=== PATIENT | female | born 1945 | race Caucasian/White ===

== ENCOUNTER → 2017-10-10 | Outpatient (CLI) | payer MEDICARE, OTHER ==
[~2017-10-10] VITALS: Ht 157.5 cm; Wt 54.0 kg
[~2017-10-10] MED LIST: ACYCLOVIR 400400 MG PO; ASPIRIN81 M2 PO; ATORVASTATIN CA40 MG PO; B12INJ IM; CELEXA20 MG PO; COZAAR 25 MG TA25 M2 PO; FOSAMAX 70 MG T70 MG PO; IMDUR 30 MG TAB30 M1; KLOR-CON 1010 MEQ PO; LASIX 20 MG TAB20 MG PO; NITROGLYCERIN0.4 MG SUBLING; PRILOSEC 20 MG20 MG PO; PULMICORT FLE180 MCG INH; PULMICORT0.25 MG/3 INH; UNICOMPLEX M TA1 TA1 PO; VENTOLIN HFA 1818 GM; VITAMIN D350000 UNIT PO
[2017-10-10 08:10] LABS: HEMATOCRIT 43.6 % (37.0-47.0); HEMOGLOBIN 14.8 gm/dL (12.0-15.0); MCH 30.4 pg (26.0-34.0); MCHC 33.9 g/dL (28.0-37.0); MCV 89.8 fL (80.0-100.0); MPV 9.1 fl. (7.2-11.1); RBC 4.86 mil/uL (4.20-5.00); WBC 3.7 thou/uL (4.0-11.0)
[2017-10-10 08:20] LABS: ANION GAP 6 mmol/L (7-16); BUN 15 mg/dL (7-18); CHLORIDE 107 mmol/L (98-107); CO2 28 mmol/L (21-32); CREATININE 0.8 mg/dL (0.6-1.3); GLUCOSE 113 mg/dL (70-99); POTASSIUM 3.6 mmol/L (3.5-5.1); SODIUM 141 mmol/L (136-145)
[2017-10-10 08:21] LABS: APTT 25.7 Seconds (25.0-31.3)
[2017-10-10 08:24] LABS: ALBUMIN 4.2 g/dL (3.4-5.0); ALKALINE PHOSPHATASE 79 U/L (46-116); CHOLESTEROL 160 mg/dL (<200); HDL CHOLESTEROL 70 mg/dL (>40); LDL CHOLESTEROL 79 mg/dL (<100); SGOT 17 U/L (15-37); SGPT 21 U/L (30-65); TC:HDL 2.3 Ratio (Not establshd); TOTAL BILIRUBIN 0.6 mg/dL (<0.1-1.0); TRIGLYCERIDE 58 mg/dL (<150); VLDL 12 mg/dL (<40)
[2017-10-10 08:25] LABS: SERUM ASSESSMENT Clear
[2017-10-10 08:38] VITALS: BP 161/66
[2017-10-10 10:38] VITALS: BP 118/49
--- NOTE | 2017-10-10 11:29 | EKG ---
[place] [address] ELECTROCARDIOGRAM REPORT Name: NIDIA VALLADARES Room: [facility]#: [id number] Admission: 10/10/17 Attend Phys: Daquan Bosch MD Discharge: Date of : 41 Report #: [id number] THIS REPORT FOR: //name// [facility] Test Date: 2017-10-10 Test Time: 08:45:34 Pat Name: NIDIA VALLADARES Department: Room: Gender: F Health Screener: 25 : 1945 Requested By: Daquan Bosch Order Number: [id number] Reading MD: Daquan Bosch Measurements Intervals Tolar Rate: 65 P: 67 MD: 181 QRS: 46 QRSD: 85 T: 57 QT: 398 QTc: 414 Interpretive Statements Sinus rhythm No previous ECG available for comparison Electronically Signed On 10-10-2017 11:29:33 BUSINESS SERVICES ASSOCIATE by Daquan Bosch [email or web address] <ELECTRONICALLY SIGNED> By: Daquan Bosch MD, [facility] 10/10/17 1129 0845 0845 Daquan Bosch MD, FACC /EPI
[2017-10-10 11:34] VITALS: BP 136/54
[2017-10-10 12:57] VITALS: BP 131/66
--- NOTE | 2017-10-10 16:40 | CARD ---
[address] [address] CARDIAC CATH REPORT Name: NIDIA VALLADARES Room: [facility]#: [id number] Admission: 10/10/17 Attend Phys: Daquan Bosch MD Discharge: Date of : 41 Report #: [id number] THIS REPORT FOR: //name// APPROVED REPORT Patient Details Patient Status: Out-Patient Room #: The patient is a 72 year-old female Event Personnel Daquan Bosch Catering Convention Services Manager, Haritha Goodman, Brisa Saba RTR Scrub, Ida Begum RN Policy Issue Clerk Procedures Performed Art Access - R radial artery , Selective Right and Left Coronary Angiography, Left Heart Catheterization Procedure Narrative The patient was brought electively to the Cardiac Catheterization Laboratory and was prepped and draped in a sterile manner. The right wrist was infiltrated with 1% Lidocaine subcutaneous anesthesia. A Slender Glidesheath sheath was inserted into the right radial artery. Coronary angiography was performed using coronary diagnostic catheters. The right coronary system was accessed and visualized with a DCR: [place] 4.0 5fr catheter. The left coronary system was accessed and visualized with a DCR: [place] 4.0 5fr catheter. The left ventricle was accessed and visualized with a PC: Angled Pig 5fr catheter. Left ventricular/Aortic Valve gradient assessed via catheter pullback. Left ventriculogram was performed in BECKWITH projection. The patient tolerated the procedure well and there were no complications associated with the procedure. Intraoperative Conscious Sedation Sedation start time: 09:45 Case end Time: 09:57 Fentanyl 25 mcg Versed 2 mg Fluoro Time: 3.2 minutes Dose: DAP 22975 cGycm2 254.48 mGy Contrast Type and Amount: Omnipaque 65 ml [place] Artery Percent Stenosis Left Main: 0 % Prox LAD: 10 % Mid/Distal LAD: 20 % Circumflex: 0 % RCA: 30 % Ramus: 20 % [place] [address] CARDIAC CATH REPORT Name: NIDIA VALLADARES Room: [facility]#: [id number] Admission: 10/10/17 Attend Phys: Daquan Bosch MD Discharge: Date of : 41 Report #: [id number] Left Ventriculography The left ventricle is normal in size with normal contractility. The left ventricular ejection fraction is estimated to be >55%. Left ventricular wall motion abnormalities are not present. There is no mitral insufficiency. Hemodynamics The aortic pressure is 132/66 mmHg with a mean of mmHg. The left ventricular pressure is 147/2 mmHg with a mean of mmHg. The left ventricular end diastolic pressure is 6 mmHg. There was no gradient across the aortic valve upon pullback. Pullback from the left ventricle to the aorta revealed no gradient across the aortic valve. Conclusion 1. mild non obstructive CAD 2. normal ejection fraction Recommendations Medical Therapy <ELECTRONICALLY SIGNED> By: Daquan Bosch MD, FACC 10/10/17 1640 1640 1640Marrabia Bosch MD, FACC /INF
== END | disposition home or self-care (01) ==
LOC: M.CL 07:40
PROVIDERS: Internal Medicine Cardiovascular Disease
DX: I25.10 Atherosclerotic heart disease of native coronary artery without angina pectoris (principal); I10 Essential (primary) hypertension; E78.5 Hyperlipidemia, unspecified; Z79.82 Long term (current) use of aspirin; Z79.01 Long term (current) use of anticoagulants; Z88.2 Allergy status to sulfonamides; Z88.6 Allergy status to analgesic agent; Z88.1 Allergy status to other antibiotic agents; Z98.51 Tubal ligation status; Z90.49 Acquired absence of other specified parts of digestive tract; Z90.710 Acquired absence of both cervix and uterus; Z98.1 Arthrodesis status; Z98.890 Other specified postprocedural states